=== PATIENT | female | born 1945 | race Two or more races ===

== ENCOUNTER 2018-08-01 13:53 | Outpatient (CLI) | payer OTHER | END 2018-08-01 14:05 | disposition home or self-care (01) | LOC: EDBD 13:53 → RAD 13:53 | DX: Z96.651 Presence of right artificial knee joint (principal) ==

== ENCOUNTER 2019-03-23 12:34 | Outpatient (CLI) | payer OTHER | END 2019-03-23 12:36 | disposition home or self-care (01) | LOC: RAD 12:34 | DX: M15.8 Other polyosteoarthritis (principal) ==

== ENCOUNTER 2019-08-17 08:37 | Outpatient (CLI) | payer OTHER | END 2019-08-17 08:46 | disposition home or self-care (01) | LOC: LAB 08:37 | PROVIDERS: ATTEND Orthopaedic Surgery Adult Reconstructive Orthopaedic Surgery | DX: I11.9 Hypertensive heart disease without heart failure (principal); D68.8 Other specified coagulation defects ==

== ENCOUNTER 2019-08-21 10:31 | Outpatient (CLI) | payer OTHER | END 2019-08-21 10:42 | disposition home or self-care (01) | LOC: NUCLEAR 10:31 | PROVIDERS: ATTEND Family Medicine | DX: I70.213 Atherosclerosis of native arteries of extremities with intermittent claudication, bilateral legs (principal) ==

== ENCOUNTER 2019-08-22 09:53 | Outpatient (CLI) | payer OTHER | END 2019-08-22 10:33 | disposition home or self-care (01) | LOC: NUCLEAR 09:53 | PROVIDERS: ATTEND Family Medicine | DX: I87.2 Venous insufficiency (chronic) (peripheral) (principal) ==